=== PATIENT | male | born 1950 | race Caucasian/White ===

== ENCOUNTER 2020-07-18 10:30 | Day surgery (SDC) | payer MEDICARE, MEDICAID ==
[2020-07-18] VITALS (25 sets, daily range): BP systolic 89–146; BP diastolic 54–84
[~2020-07-18] VITALS: Ht 165.1 cm; Wt 83.7 kg
[2020-07-18] MEDS ORDERED: fentaNYL/PF 50MCG/1 ML 2ML syringe IV ONE (11:00)
[2020-07-18] MEDS ORDERED: normal saline 1000ml 1,000 ML IV SCH (11:00)
[2020-07-18] MEDS ORDERED: MIDAZolam 1mg/ml 10ml vial IV ONE (11:00)
[2020-07-18] MEDS ORDERED: TRAZ-251 PO (11:11)
[2020-07-18] MEDS ORDERED: LOSA100T57 PO (11:11)
[2020-07-18] MEDS ORDERED: TERA1CAP4 PO (11:11)
[2020-07-18] MEDS ORDERED: DABI150C PO (11:11)
[2020-07-18] MEDS ORDERED: ATOR10TA70 PO (11:11)
[2020-07-18] MEDS ORDERED: METO-384 PO (11:11)
[2020-07-18] MEDS ORDERED: flecainide 50mg tablet PO ONE (11:55)
[2020-07-18 12:04] LABS: BASOPHILS # (AUTO) 0.1 X10'3 (0-0.2); BASOPHILS % (AUTO) 0.6 % (0-1); EOSINOPHILS # (AUTO) 0.2 X10'3 (0-0.9); EOSINOPHILS % (AUTO) 1.9 % (0-6); HEMATOCRIT 42.1 % (42.0-52.0); LYMPHOCYTES % (AUTO) 20.9 % (21-51); MEAN CORPUSCULAR HEMOGLOBIN 31.9 PG (27.0-31.0); MEAN CORPUSCULAR HGB CONC 33.3 g/dL (33.0-36.5); MEAN CORPUSCULAR VOLUME 95.8 FL (78-98); MEAN PLATELET VOLUME 10.9 FL (7.4-10.4); MONOCYTES # (AUTO) 0.4 X10'3 (0-0.9); MONOCYTES % (AUTO) 4.3 % (2-12); NEUTROPHILS % (AUTO) 72.3 % (42-75); PLATELET COUNT 180 X10'3 (140-440); RED BLOOD COUNT 4.39 X10'6 (4.70-6.10); RED CELL DISTRIBUTION WIDTH 13.7 % (11.5-14.5); WHITE BLOOD COUNT 9.7 X10'3 (4.5-11.0)
[2020-07-18 12:13] LABS: ALBUMIN 3.3 G/DL (3.4-5.0); ANION GAP 10 (8-16); BLOOD UREA NITROGEN 36 MG/DL (7-18); CALCIUM 9.1 MG/DL (8.5-10.1); CHLORIDE 107 MMOL/L (99-107); CREATININE 1.44 MG/DL (0.60-1.10); GLUCOSE 124 MG/DL (70-104); POTASSIUM 4.6 MMOL/L (3.5-5.1); SODIUM 141 MMOL/L (135-145); eGFR 49 ML/MIN
== END 2020-07-18 16:12 | disposition home or self-care (01) ==
LOC: SSTAY O 10:30
PROVIDERS: ATTEND Internal Medicine Cardiovascular Disease
DX: I48.0 Paroxysmal atrial fibrillation (principal); I42.9 Cardiomyopathy, unspecified; I47.1 Supraventricular tachycardia; N19 Unspecified kidney failure; E78.5 Hyperlipidemia, unspecified; Z95.810 Presence of automatic (implantable) cardiac defibrillator; Z87.891 Personal history of nicotine dependence; I34.0 Nonrheumatic mitral (valve) insufficiency; I27.20 Pulmonary hypertension, unspecified; Z88.0 Allergy status to penicillin; Z88.1 Allergy status to other antibiotic agents; Z88.8 Allergy status to other drugs, medicaments and biological substances; Z88.2 Allergy status to sulfonamides; Z79.899 Other long term (current) drug therapy
CPT/HCPCS: 80048; 83735; 85025; 85610; 92960; 93005; 94799; J2250; J3010; J7030